=== PATIENT | female | born 1970 | race American Indian/Alaskan Native ===

== ENCOUNTER 2017-10-26 13:08 | Emergency (ER) | payer MEDICARE, OTHER ==
[2017-10-26 13:08] VITALS: BMI 31.1
[2017-10-26 13:14] VITALS: BP 141/89; PULSE 89; RESP 18; TEMP 98.1; O2SAT 99
--- NOTE | 2017-10-26 13:29 | C.PDOC ---
History Of Present Illness 46-year-old female, PRESENTS TO THE EMERGENCY DEPARTMENT WITH COMPLAINTS OF L HAND INJURY ONSET [employer]. PS ACCID STRUCK EDGE OF DRESSER, CO INCR SWELLING TOP OF HAND. L HANDED. CO PAIN TO AREA EXAM NAD NONTOXIC EXT L HAND +LARGE HEMATOMA TOP OF HAND, NO GROSS DEFORM LIMTIED DUE TO HEMATOMA ; NO TENDON DYSFXN SKIN INTACT NEURO INTACT REMAINDER NEG Time Seen by Provider: 10/26/17 13:17 Chief Complaint (Nursing): Upper Extremity Problem/Injury History Per: Patient History/Exam Limitations: no limitations Current Symptoms Are (Timing): Still Present Past Medical History Reviewed: Historical Data, Nursing Documentation, Vital Signs Vital Signs: Last Vital Signs Temp 98.1 F 10/26/17 13:11 Pulse 89 10/26/17 13:11 Resp 18 10/26/17 13:11 BP 141/89 10/26/17 13:11 Pulse Ox 99 10/26/17 13:36 - Medical History PMH: Anxiety, Asthma, Diabetes Surgical History: Appendectomy - [facility] Procedures ASPIRATION OF OVARY (12/22/00) CERVICAL BIOPSY NEC (12/22/00) CERVICAL LES DESTRUC NEC (02/03/01) D & C NEC (12/22/00) Family History: States: No Known Family Hx - Social History Hx Tobacco Use: No Hx Alcohol Use: No Hx Substance Use: No - Immunization History Hx Tetanus Toxoid Vaccination: No Hx Influenza Vaccination: No Hx Pneumococcal Vaccination: No Review Of Systems Except As Marked, All Systems Reviewed And Found Negative. Constitutional: Negative for: Fever, Chills Respiratory: Negative for: Shortness of Breath Musculoskeletal: Positive for: Hand Pain (left). Negative for: Arm Pain Skin: Negative for: Rash Neurological: Negative for: Weakness, Numbness Physical Exam - Physical Exam Appears: Non-toxic, No Acute Distress Skin: Normal Color, Warm, Dry, No Rash Head: Atraumatic Eye(s): bilateral: Normal Inspection Nose: Normal Oral Mucosa: Moist Lips: Normal Appearing Neck: Normal ROM Chest: Symmetrical Respiratory: No Accessory Muscle Use (NARD) Extremity: Other ( L HAND +LARGE HEMATOMA TOP OF HAND, NO GROSS DEFORM LIMTIED DUE TO HEMATOMA; NO TENDON DYSFXN) Neurological/Psych: Oriented x3, Normal Speech ED Course And Treatment O2 Sat by Pulse Oximetry: 99 Pulse Ox Interpretation: Normal - Other Rad L HAND X-Ray: Interpreted by Me (NEG) Disposition Counseled Patient/Family Regarding: Studies Performed, Diagnosis, Need For Followup - Disposition Referrals: [facility] [Outside] [facility] [Outside] Kapil Alex MD [Staff Provider] - Disposition: HOME/ ROUTINE Disposition Time: 13:36 Condition: IMPROVED Instructions: Contusion (DC) Forms: [employer] ([place]) - Clinical Impression Clinical Impression: Hand contusion - Scribe Statement The provider has reviewed the documentation as recorded by the Scribe (James Nuñez) All medical record entries made by the Scribe were at my direction and personally dictated by me. I have reviewed the chart and agree that the record accurately reflects my personal performance of the history, physical exam, medical decision making, and the department course for this patient. I have also personally directed, reviewed, and agree with the discharge instructions and disposition. Orthopedic Care Application Of:: Volar Splint
--- NOTE | 2017-10-26 13:44 | RAD ---
PROCEDURE: Left Hand Radiographs. HISTORY: Trauma COMPARISON: None. FINDINGS: BONES: Normal. No fracture. JOINTS: Normal. No osteoarthritic changes. SOFT TISSUES: Normal. OTHER FINDINGS: None. IMPRESSION: No acute fracture or dislocation.
== END 2017-10-26 13:48 | disposition home or self-care (01) ==
LOC: C.ER 13:08
DX: S60.222A Contusion of left hand, initial encounter (principal); W22.8XXA Striking against or struck by other objects, initial encounter; Y92.009 Unspecified place in unspecified non-institutional (private) residence as the place of occurrence of the external cause